=== PATIENT | male | born 1970 | race Caucasian/White ===

== ENCOUNTER 2016-10-16 11:43 | Emergency (ER) | payer OTHER ==
[2016-10-16] MEDS ORDERED: HYDROCODON-ACE1 EA16 PO (11:47)
[2016-10-16] MEDS ORDERED: CYCLOBENZAPRINE5 M1 PO (11:47)
[2016-10-16] MEDS ORDERED: PREDNISONE20 M1 PO (15:29)
[2016-10-16] MEDS ORDERED: PERCOCET 5-3251 EACH PO (15:29)
== END 2016-10-16 16:18 ==
LOC: EDMED 11:43
DX: M51.87 Other intervertebral disc disorders, lumbosacral region (principal); Z88.0 Allergy status to penicillin; Z98.890 Other specified postprocedural states; Z79.891 Long term (current) use of opiate analgesic
CPT/HCPCS: J1170; J3360